=== PATIENT | male | born 1990 | race Two or more races ===

== ENCOUNTER 2016-10-17 18:47 | Emergency (ER) | payer SELFPAY ==
--- NOTE | ~2016-10-17 | CT16 ---
[facility] A Service of [facility] RADIOLOGY TEXT RESULTS PATIENT: NELIA GARZA LOCATION: [facility] : [birth year] UNIT #: [id number] AGE: [address]: Shawna Cavanaugh MD SEX: M ORDER DR: [id number] [facility] [address] [place], [place] [address] [id number] E MR#: [id number] Acc #: [id number] NAME: NELIA GARZA : 1990 SEX: M STUDY DATE/TIME: 10/17/2016 22:36 UNIT: [facility] ROOM: STUDY DESCRIPTION: CT Angio Chest for PE Attending Physician: David García D.O. Referring Physician: Primary Care Physician No Ordering Physician: David García D.O. Primary Care Physician: Primary Care Physician No MEDICAL IMAGING REPORT This report is preliminary unless electronic signature is present EXAM CT chest with contrast, pulmonary arteriography protocol, 10/17/2016 HISTORY 26-year-old male in the ED complaining of 2-week history of chest pain, abdomen pain, shortness of air, nausea and vomiting. TECHNIQUE CT examination of the chest with IV contrast. CTA MIP images of the pulmonary arteries were reformatted in multiple planes. This CT examination was performed with one or more of the following radiation dose reduction techniques: automatic exposure control, adjustment of mA and/or kV according to patient size, and iterative reconstruction. FINDINGS No pulmonary embolism is demonstrated. Thoracic aorta is normal in caliber. Heart size is normal, there is no pericardial effusion. The lungs are expanded and clear. No visible pulmonary infiltrate, pneumothorax or pleural effusion. No suspicious mass or adenopathy within the chest. Abdomen and pelvis CT to follow. IMPRESSION Negative chest CT examination using pulmonary arteriography protocol. Dictated by... Bubba Hernandez M.D. THIS IS AN ELECTRONICALLY VERIFIED REPORT Bubba Hernandez M.D. at 10/18/2016 9:48 PM VICKIW/maryellen [facility] A Service of [facility] & [facility] RADIOLOGY TEXT RESULTS PATIENT: NELIA GARZA LOCATION: [facility] : [birth year] UNIT #: [id number] AGE: [address]: Shawna Cavanaugh MD SEX: M ORDER DR: TD: 10/18/2016 06:02 JOB #: [id number] MEDICAL IMAGING REPORT Page 1 of 1 COPY
--- NOTE | ~2016-10-17 | CT71 ---
[facility] A Service of [facility] & [facility] RADIOLOGY TEXT RESULTS PATIENT: NELIA GARZA LOCATION: [facility] : [birth year] UNIT #: [id number] AGE: [address]: Shawna Cavanaugh MD SEX: M ORDER DR: [id number] [facility] [address] [place], [place] [address] [id number] E MR#: [id number] Acc #: [id number] NAME: NELIA GARZA : 1990 SEX: M STUDY DATE/TIME: 10/18/2016 4:00 UNIT: [facility] ROOM: STUDY DESCRIPTION: CT Head Wo Contrast Attending Physician: Shawna Cavanaugh M.D. Referring Physician: No Primary Care Physician Ordering Physician: David García D.O. Primary Care Physician: No Primary Care Physician MEDICAL IMAGING REPORT This report is preliminary unless electronic signature is present EXAM CT head, noncontrast, 10/18/2016. HISTORY 26-year-old male in the ED complaining of 2-week history of nausea and vomiting. He also notes headaches, dizziness and blurry vision. TECHNIQUE CT examination of the head without IV contrast. This CT exam was performed with one or more of the following radiation dose reduction techniques: automatic exposure control, adjustment of mA and/or kV according to patient size, and iterative reconstruction. FINDINGS The examination is negative. No evidence of intracranial hemorrhage, mass, mass effect, cerebral edema, hydrocephalus or additional abnormality. IMPRESSION Negative head CT examination. Dictated by... Bubba Hernandez M.D. THIS IS AN ELECTRONICALLY VERIFIED REPORT Bubba Hernandez M.D. at 10/18/2016 9:49 PM RGW/alton TD: 10/18/2016 08:22 JOB #: [id number] MEDICAL IMAGING REPORT Page 1 of 1 COPY
--- NOTE | ~2016-10-17 | CT2 ---
[facility] A Service of [facility] RADIOLOGY TEXT RESULTS PATIENT: NELIA GARZA LOCATION: [facility] : [birth year] UNIT #: [id number] AGE: [address]: David García DO SEX: M ORDER DR: [id number] [facility] [address] [place], [place] [address] [id number] E MR#: [id number] Acc #: [id number] NAME: NELIA GARZA : 1990 SEX: M STUDY DATE/TIME: 10/17/2016 22:11 UNIT: [facility] ROOM: STUDY DESCRIPTION: CT Abd and Pelv W Cont Attending Physician: David García D.O. Referring Physician: Primary Care Physician No Ordering Physician: David García D.O. Primary Care Physician: Primary Care Physician No MEDICAL IMAGING REPORT This report is preliminary unless electronic signature is present EXAM CT abdomen and pelvis with contrast, 10/17/2016 HISTORY 26-year-old male in the ED complaining of 2-week history of shortness of air, abdomen pain, nausea and vomiting. TECHNIQUE CT examination of the abdomen and pelvis with IV contrast. This CT exam was performed with one or more of the following radiation dose reduction techniques: automatic exposure control, adjustment of mA and/or kV according to patient size, and iterative reconstruction. FINDINGS ABDOMEN: Liver, pancreas, spleen and kidneys are normal in size and appearance. No gallbladder distension or bile duct dilatation. Small bowel and colon are normal in caliber and appearance, as imaged. Normal appendix. PELVIS FINDINGS: The urinary bladder, prostate and rectum are negative. No inguinal hernia or abdominal wall hernia. IMPRESSION Negative CT examination of the abdomen and pelvis. Dictated by... Bubba Hernandez M.D. THIS IS AN ELECTRONICALLY VERIFIED REPORT Bubba Hernandez M.D. at 10/18/2016 6:04 AM [facility] A Service of [facility] RADIOLOGY TEXT RESULTS PATIENT: NELIA GARZA LOCATION: [facility] : [birth year] UNIT #: [id number] AGE: [address]: David García DO SEX: M ORDER DR: ROXI/dieudonne TD: 10/18/2016 05:15 JOB #: [id number] MEDICAL IMAGING REPORT Page 1 of 1 COPY
--- NOTE | ~2016-10-17 | CR2 ---
[facility] A Service of [facility] & [facility] RADIOLOGY TEXT RESULTS PATIENT: NELIA GARZA LOCATION: [facility] : [birth year] UNIT #: [id number] AGE: [address]: Shawna Cavanaugh MD SEX: M ORDER DR: [id number] [facility] [address] [place], [place] [address] [id number] E MR#: [id number] Acc #: [id number] NAME: NELIA GARZA : 1990 SEX: M STUDY DATE/TIME: 10/17/2016 21:26 UNIT: [facility] ROOM: STUDY DESCRIPTION: CR Abdomen Acute Series Attending Physician: David García D.O. Referring Physician: Primary Care Physician No Ordering Physician: Michael Davis M.D. Primary Care Physician: Primary Care Physician No MEDICAL IMAGING REPORT This report is preliminary unless electronic signature is present EXAM Acute abdomen series 3 views, 10/17/2016 HISTORY Chest pain, abdomen pain, nausea and shortness of breath for 15 days. FINDINGS Three views of the chest and abdomen demonstrate mild gaseous distension of the small bowel with a normal colonic gas pattern. Findings probably reflect ileus or enteritis. Clinical correlation is recommended. There is no evidence of free air. Single view of the chest is normal. IMPRESSION 1. Mild gaseous distension of the small bowel with a normal colonic gas pattern probably reflecting ileus or enteritis. Clinical correlation recommended. No evidence of free air. 2. No active pulmonary disease. Dictated by... Kunal Cotto M.D. THIS IS AN ELECTRONICALLY VERIFIED REPORT Kunal Cotto M.D. at 10/18/2016 2:15 PM KRT/psc TD: 10/18/2016 04:03 JOB #: [id number] MEDICAL IMAGING REPORT Page 1 of 1 COPY
--- NOTE | ~2016-10-17 | EKG ---
PATIENT: NELIA GARZA UNIT #: [id number] Ventricular Rate: 65 BPM Atrial Rate: 65 BPM P-R Interval: 152 ms QRS Duration: 100 ms Q-T Interval: 388 ms QTC Calculation(Bezet): 403 ms P [place]: 61 degrees Calculated R [place]: 114 degrees Calculated T [place]: 52 degrees Diagnosis Line: Normal sinus rhythm Diagnosis Line: Possible Left atrial enlargement Diagnosis Line: Right axis deviation Diagnosis Line: Incomplete right bundle branch block Diagnosis Line: Abnormal ECG Diagnosis Line: No previous ECGs available Diagnosis Line: Confirmed by BLAIRE HAND MD ([id number]) on 10/19/2016 Diagnosis Line: 4:54:49 PM INTERPRETING MD: YAZAN MCCABE
[2016-10-17 20:32] LABS: BASOPHIL% 0.3 % (0-2.5); DIFF IND NO; EOSINOPHIL% 0.6 % (0.0-7.0); HEMATOCRIT 46.5 % (38.0-50.0); HEMOGLOBIN 16.1 gm/dL (13.0-16.0); LYMPHOCYTE# 1.8 X10e3 (1.0-3.5); LYMPHOCYTE% 21.9 % (17.0-45.0); MEAN CELL VOLUME 82.1 FL (83-96); MEAN CORPUSCULAR HEMOGLOBIN 28.5 PG (28-34); MEAN CORPUSCULAR HGB CONC 34.7 g/dL (30-36); MONOCYTE# 0.5 X10e3 (0-1.0); MONOCYTE% 6.7 % (3.0-12.0); NEUTROPHIL# 5.7 X10e3 (1.5-7.1); NEUTROPHIL% 70.5 % (40-75); PLATELET COUNT 223 X10e3 (140-420); RED BLOOD COUNT 5.67 X10e (3.90-5.60); RED CELL DISTRIBUTION WIDTH 13.5 % (11.0-15.5)
[2016-10-17 20:55] LABS: ALBUMIN SERUM 5.1 g/dL (3.5-5.0); BILIRUBIN, DIRECT 0.2 mg/dL (0.0-0.2); BILIRUBIN,INDIRECT 2.6 mg/dL (0.0-0.9); BILIRUBIN,TOTAL 2.8 mg/dL (0.2-2.0); BUN/CREATININE RATIO 17.5; CALCIUM SERUM 9.5 mg/dL (8.4-10.2); CREATININE SERUM 0.8 mg/dL (0.6-1.4); GLOM FILT RATE Estimated 122.5 mL/min (>60); POTASSIUM 3.8 mmol/L (3.5-5.1); PROTEIN TOTAL SERUM 8.2 g/dL (6.0-8.3)
[2016-10-17 21:59] LABS: URINE SOURCE CLEAN CATCH
[2016-10-17 22:01] LABS: URINE APPEARANCE CLEAR; URINE BILIRUBIN NEG (NEG); URINE BLOOD NEG (NEG); URINE COLOR YELLOW; URINE GLUCOSE NEG (NEG); URINE KETONE 1+ (NEG); URINE LEUKOCYTE ESTERASE NEG (NEG); URINE NITRATE NEG (NEG); URINE PH 5.5 (5-8); URINE PROTEIN NEG (NEG); URINE SPECIFIC GRAVITY 1.024 (1.003-1.035)
[2016-10-17 22:05] LABS: CULTURE INDICATED? NO
[2016-10-17 22:11] LABS: AMPHETAMINE NEG (NEG); BARBITURATES NEG (NEG); BENZODIAZEPINES NEG (NEG); COCAINE NEG (NEG); MARIJUANA NEG (NEG); OPIATES NEG (NEG); TRICYCLIC ANTIDEPRESSANTS NEG (NEG); U METHADONE NEG (NEG)
[2016-10-17 23:26] LABS: POC - CKMB <1.0 ng/mL (0.0-7.9); POC - TROPONIN <0.05 ng/mL (<=0.05)
[2016-10-18 02:54] LABS: POC - CKMB <1.0 ng/mL (0.0-7.9); POC - TROPONIN <0.05 ng/mL (<=0.05)
[2016-10-18 05:24] LABS: INR 1.2; PARTIAL THROMBOPLASTIN TIME 33.6 SECONDS (23.5-31.3); PROTHROMBIN TIME (PATIENT) 12.5 SECONDS (10.0-11.7)
[2016-10-18 06:54] LABS: CSF APPEARANCE CLEAR (CLEAR); CSF RBC 3 CMM (0); CSF TUBE NUMBER 1; CSF WBC 1 CMM (0-8); CSF XANTHACHROMIC NO
[2016-10-18 07:01] LABS: CSF APPEARANCE CLEAR (CLEAR); CSF LYMPHOCYTE 0 %; CSF MONOCYTE 0 %; CSF NEUTROPHIL 0 %; CSF RBC 0 CMM (0); CSF TUBE NUMBER 3; CSF WBC 0 CMM (0-8); CSF XANTHACHROMIC NO
[2016-10-18 07:10] LABS: GLUCOSE-CSF 59 mg/dL (50-80)
[2016-10-18 07:11] LABS: PROTEIN-CSF 21 mg/dL (15-45)
[2016-10-18 07:33] LABS: CSF LYMPHOCYTE 1 %; CSF MONOCYTE 0 %; CSF NEUTROPHIL 0 %
== END 2016-10-18 08:35 | disposition home or self-care (01) ==
LOC: CED 18:47
PROVIDERS: Emergency Medicine
DX: F45.8 Other somatoform disorders (principal); R07.9 Chest pain, unspecified; R51 Headache; R10.9 Unspecified abdominal pain; R11.0 Nausea; F41.9 Anxiety disorder, unspecified
CPT/HCPCS: 36415; 62270; 70450; 71275; 74022; 74177; 80048; 80076; 80307; 81003; 82553; 82945; 83690; 84157; 84484; 85025; 85610; 85730; 87070; 87205; 89051; 93005; 96361; 96374; 96375; 99285; J2060; J2405; J2765; Q9967